=== PATIENT | male | born 1990 | race Caucasian/White ===

== ENCOUNTER 2018-09-16 16:07 | Outpatient (CLI) | payer OTHER | END 2018-09-16 16:18 | disposition home or self-care (01) | LOC: LAB 16:07 | DX: N46.11 Organic oligospermia (principal) ==

== ENCOUNTER → 2019-09-29 07:17 | Outpatient (CLI) | payer OTHER | END | disposition home or self-care (01) | LOC: EDBD 07:17 → LAB 07:17 | DX: E00.9 Congenital iodine-deficiency syndrome, unspecified (principal) ==

== ENCOUNTER 2021-02-27 07:52 | Outpatient (CLI) | payer OTHER | END 2021-02-27 14:22 | disposition home or self-care (01) | LOC: MAMO-SONO 07:52 | PROVIDERS: ATTEND Internal Medicine Sports Medicine | DX: N62 Hypertrophy of breast (principal); Z12.39 Encounter for other screening for malignant neoplasm of breast ==